=== PATIENT | male | born 1995 | race Caucasian/White ===

== ENCOUNTER → 2020-09-28 | Outpatient (CLI) | payer BC | LOC: WOUNDCARE 09:56 | PROVIDERS: ATTEND Surgery | DX: T24.331A Burn of third degree of right lower leg, initial encounter (principal); I96 Gangrene, not elsewhere classified | CPT/HCPCS: 99203 ==

== ENCOUNTER → 2020-10-05 | Outpatient (CLI) | payer BC | LOC: WOUNDCARE 09:54 | PROVIDERS: ATTEND Surgery | DX: T24.331A Burn of third degree of right lower leg, initial encounter (principal) | CPT/HCPCS: 99213 ==

== ENCOUNTER → 2020-10-12 | Outpatient (CLI) | payer BC | LOC: WOUNDCARE 08:15 | PROVIDERS: ATTEND Surgery | DX: T24.331A Burn of third degree of right lower leg, initial encounter (principal); I96 Gangrene, not elsewhere classified | CPT/HCPCS: 16020; G0463 ==